=== PATIENT | male | born 1965 | race Caucasian/White ===

== ENCOUNTER 2021-11-22 20:45 | Emergency (ER) | payer OTHER ==
[~2021-11-22 20:45] MED LIST: AMLODIPINE BESY10 MG PO; CYCLOBENZAPRINE5 MG PO; GLUCOPHAGE 500500 MG PO; HYDROCHLOROTHIA25 MG PO; IBUPROFEN600 MG PO; LOPRESSOR50 MG PO; NORCO 10-325 T1 EACH PO; NORCO 5-325 TA1 EACH PO; PERCOCET 5-3251 EACH PO; ZYVOX600 MG PO
[2021-11-22 21:12] LABS: HEMOGLOBIN 12.4 gm/dl (14.0-17.5); RED BLOOD COUNT 4.13 M/UL (4.20-5.50); WHITE BLOOD COUNT 5.3 K/UL (4.5-11.0)
[2021-11-22 21:37] LABS: BUN/CREATININE RATIO 22 (0-10)
[2021-11-22] MEDS ORDERED: HYDROCODONE-AC1 EACH PO (22:38)
[2021-11-22] MEDS ORDERED: CEPHALEXIN500 M1 PO (22:38)
== END 2021-11-22 23:15 | disposition home or self-care (01) ==
LOC: ER1 20:45
PROVIDERS: Emergency Medicine
DX: S51.811A Laceration without foreign body of right forearm, initial encounter (principal); Z23 Encounter for immunization; I10 Essential (primary) hypertension; F17.200 Nicotine dependence, unspecified, uncomplicated; W22.8XXA Striking against or struck by other objects, initial encounter; Y92.89 Other specified places as the place of occurrence of the external cause; Y99.0 Civilian activity done for income or pay
CPT/HCPCS: 12001; 73090; 80048; 85025; 86850; 86900; 86901; 90471; 90715; 96374; 96375; 99283; J0690; J2270; J2405; J3010